=== PATIENT | female | born 1995 | race Caucasian/White ===

== ENCOUNTER 2017-05-04 05:21 | Day surgery (SDC) | payer OTHER ==
[2017-04-27 11:10] LABS: ABSOLUTE EOSINOPHILS # (AUTO) 0.1 10^3/uL (0.0-0.6); ABSOLUTE MONOCYTES (AUTO) 0.4 10^3/uL (0.1-1.4); ABSOLUTE NEUT (AUTO) 4.1 10^3/uL (1.7-8.2); BASOPHILS % (AUTO) 0.5 % (0-2); EOSINOPHILS % (AUTO) 0.9 % (0-6); HEMATOCRIT 40.5 % (36.0-47.0); HEMOGLOBIN 13.3 g/dL (12.0-15.5); HGB HCT DIFFERENCE -0.6; LYMPHOCYTES % (AUTO) 29.9 % (13-45); MEAN CORPUSCULAR HGB CONC 32.9 g/dL (32.0-36.0); MEAN CORPUSCULAR VOLUME 88 fl (80-97); MONOCYTES % (AUTO) 5.7 % (3-13); RED BLOOD COUNT 4.59 10^6/uL (3.72-5.28); RED CELL DISTRIBUTION WIDTH 13.1 % (11.5-14.0); WHITE BLOOD COUNT 6.6 10^3/uL (4.0-10.5)
[~2017-05-04 05:21] MED LIST: CEFAZOLIN 1 GM/D5W RTU 1 GM/50 ML RTUPB IV PRN; LACTATED RINGERS 1000 ML IV PRN; LIDOCAINE 0.5% INJ-PF (5 MG/ML) 50 ML SDV SUBCUT PRN
[2017-05-04] MEDS ORDERED: LIDOCAINE 1% INJ-PF (10 MG/ML) 30 ML SDV ONE (06:34)
[2017-05-04] MEDS ORDERED: MIDAZOLAM 2 MG/2 ML INJ ONE (06:56)
[2017-05-04] MEDS ORDERED: FENTANYL CITRATE INJ/PF 100 MCG/2 ML AMPUL ONE ×2 (06:56)
[2017-05-04] MEDS ORDERED: ACETAMINOPHEN 100 ML IV ONE (06:57)
[2017-05-04] MEDS ORDERED: PROPOFOL INJ 200 MG/20 ML VIAL IV ONE (06:57)
[2017-05-04] MEDS ORDERED: EPHEDRINE SULFATE INJ 50 MG/1 ML AMPULE ONE (06:57)
[2017-05-04] MEDS ORDERED: KETAMINE HCL INJ 500 MG/10 ML VIAL ONE (06:58)
[2017-05-04] MEDS ORDERED: MEPERIDINE HCL/PF INJ 25 MG/1 ML DISP.SYRIN IV PRN (07:53)
[2017-05-04] MEDS ORDERED: DIPHENHYDRAMINE HCL 50 MG/ML VIAL IV PRN (07:53)
[2017-05-04] MEDS ORDERED: ONDANSETRON HCL INJ/PF 4 MG/2 ML SDV IV PRN (07:53)
[2017-05-04] MEDS ORDERED: MORPHINE SULFATE 10 MG/ML INJ IV PRN (07:53)
[2017-05-04] MEDS ORDERED: PROMETHAZINE HCL INJ 25 MG/1 ML VIAL IV PRN ×2 (07:53)
[2017-05-04] MEDS ORDERED: FENTANYL CITRATE INJ/PF 100 MCG/2 ML AMPUL IV PRN ×3 (07:53)
--- NOTE | 2017-05-04 08:17 | Operative Report ---
Operative Report DATE OF SURGERY: 05/04/17 PREOPERATIVE DIAGNOSIS: Left breast mass consistent with fibroadenoma POSTOPERATIVE DIAGNOSIS: Same OPERATION: 1. Focused ultrasound left axilla. 2. Open excision of left tail of Hou breast mass SURGEON: NANCI MACDONALD 1ST [employer]GROUND [employer]ING SECTION FOREMAN: CLAY KELLY ANESTHESIA: LMAC TISSUE REMOVED OR ALTERED: Left breast mass COMPLICATIONS: None ESTIMATED BLOOD LOSS: Scant INTRAOPERATIVE FINDINGS: See below PROCEDURE: Patient is seen in the preop holding area the left breast was marked. She was taken to the operating room where LMAC anesthesia was induced. Left arm is abducted, and the left axilla was exposed, and the left axilla and lateral aspect of the left breast prepped and draped in sterile fashion. Surgical plan and surgical timeout conducted. The left breast and axilla was scanned with the variable frequency linear transducer. Findings were significant for approximately 3 cm x 0.5 cm homogeneous, well-circumscribed, hypoechoic density, without posterior shadowing. The findings were consistent with a fibroadenoma. The skin was anesthetized 1% plain lidocaine. A small to and 1/2 cm incision was made with a #10 blade. Very limited skin flaps were raised, and the underlying mass was identified. Again it was well-circumscribed. A 2-0 Vicryl suture was placed in the center of the mass to use as leverage. The mass was dissected out from the surrounding subcutaneous tissue with electrocautery. Of note this mass was in the high tail of Hou low axillary region. We also noted prior to the incision and during the incision the exact location of the patient's left breast subpectoral implant. We stayed way out of its vicinity. The mass was excised well-circumscribed in its entirety, submitted to pathology as left breast mass consistent with fibroadenoma. We reinspected the axilla ultrasound, and found no other associated pathology. We felt the operation was complete. Hemostasis was achieved with electrocautery ; wound closed with 3-0 Vicryl, Dermabond glue. Patient taught procedure well, taken to recovery in stable condition. The physician property management assistant, Ms. Cordero, provided assistance during this case by: Assisting with retracting tissue, instillation of local anesthesia and closure of skin incisions.
--- NOTE | 2017-05-04 08:20 | PDOC DISCHARGE SUMMARY ---
Discharge Summary (SDC) - Discharge Final Diagnosis: Left breast mass Date of Surgery: 05/04/17 Discharge Date: 05/04/17 Condition: Good Treatment or Instructions: Patient is to exhibit limited use of the left arm until seen in the clinic; no heavy lifting or pulling. Patient may shower. Description for pain medications left on chart. Prescriptions: Ketorolac Tromethamine [Toradol 10 mg Tablet] 10 mg PO Q6HP PRN #14 tablet PRN Reason: Discharge Diet: As Tolerated Discharge Activity: No Lifting Over 10 Pounds, No Lifting/Push/Pulling Home Care Assistance: None Needed Report the Following to Your Physician Immediately: Increase in Pain, Fever over 101 Degrees, Unusual Bleeding
[2017-05-04 10:16] VITALS: BP 123/77
[2017-05-04] MEDS ORDERED: DEXAMETHASONE SOD PHOSPHATE INJ 4 MG/1 ML VIAL ONE (10:23)
[2017-05-04] MEDS ORDERED: GLYCOPYRROLATE INJ 0.4 MG/2 ML VIAL ONE (10:23)
[2017-05-04] MEDS ORDERED: LIDOCAINE 2% INJ-PF (20 MG/ML) 10 ML AMPUL ONE (10:23)
[2017-05-04] MEDS ORDERED: KETOROLAC TROMETHAMINE 60 MG/2 ML SDV ONE (10:23)
[2017-05-04] MEDS ORDERED: ONDANSETRON HCL INJ/PF 4 MG/2 ML SDV ONE (10:23)
[2017-05-04] MEDS ORDERED: METOCLOPRAMIDE HCL INJ/PF 10 MG/2 ML SDV ONE (10:23)
== END 2017-05-04 10:10 | disposition home or self-care (01) ==
LOC: OROUT 05:21 → EDBD 07:30 → OROUT 10:10
PROVIDERS: ATTEND Surgery
PROC: 0HBU0ZX Excision of Left Breast, Open Approach, Diagnostic (ICD-10-PCS; principal; 2017-05-04 07:30)
DX: D24.2 Benign neoplasm of left breast (principal)
CPT/HCPCS: 36415; 85025; 81025; 88305 ×2; 88342; 19120; J2250; J0690; J1100; J1885; J3010; J3490 ×3; J2765; J2405; J2704; J0131; 400